=== PATIENT | male | born 1980 | race Caucasian/White ===

== ENCOUNTER → 2022-02-23 08:06 | Outpatient (BNVA) | payer OTHER, SELFPAY | PROVIDERS: PCP Internal Medicine; Referring Provider Internal Medicine; Visit Provider Internal Medicine Rheumatology | DX: M79.643 Pain in unspecified hand (principal); M54.50 Low back pain, unspecified; M25.561 Pain in right knee; M25.562 Pain in left knee | CPT/HCPCS: 99202 ==